=== PATIENT | female | born 1965 | race Caucasian/White ===

== ENCOUNTER → 2016-06-16 | Outpatient (CLI) | payer OTHER ==
[~2016-06-16] MED LIST: ADDERALL 10 MG10 MG PO; ADDERALL10 MG PO; CEVIMELINE HCL30 MG PO; CYMBALTA30 MG PO; CYMBALTA60 MG PO; DESYREL150 MG PO; KLONOPIN0.5 MG PO; LAMICTAL100 MG PO; LATUDA40 MG PO; LEVOTHROID (S125 MCG PO; LEVOTHROID(SYN75 MCG PO; PROVIGIL200 MG PO; RISPERDAL1 MG PO; TOPAMAX50 MG PO; VALTREX (NON-F500 MG PO; WELLBUTRIN100 MG PO; ZOCOR20 MG PO; ZOLOFT100 MG PO
== END | disposition disaster alternative care site (69) ==
LOC: GRAD 15:03
DX: H91.90 Unspecified hearing loss, unspecified ear (principal); R42 Dizziness and giddiness; R93.0 Abnormal findings on diagnostic imaging of skull and head, not elsewhere classified
CPT/HCPCS: A9577

== ENCOUNTER → 2016-06-27 | Outpatient (CLI) | payer OTHER | END | disposition disaster alternative care site (69) | LOC: GRAD 13:22 | DX: R53.1 Weakness (principal); M47.814 Spondylosis without myelopathy or radiculopathy, thoracic region; M47.812 Spondylosis without myelopathy or radiculopathy, cervical region; M50.221 Other cervical disc displacement at C4-C5 level; R25.8 Other abnormal involuntary movements; R26.9 Unspecified abnormalities of gait and mobility ==